=== PATIENT | female | born 1980 | race American Indian/Alaskan Native ===

== ENCOUNTER 2018-10-20 10:25 | Emergency (ER) | payer SELFPAY ==
[2018-10-20] MEDS ORDERED: PROVENTIL IH ONE (11:05)
[2018-10-20] MEDS ORDERED: DUONEB *Not for PRN Use IH ONE (13:13)
--- NOTE | 2018-10-20 14:06 | Emergency Department Report ---
ED General Adult HPI - General Chief complaint: Adult Asthma Stated complaint: ASTHMA ATTACK Time Seen by Provider: 10/20/18 13:01 Source: patient Mode of arrival: Ambulatory Limitations: No Limitations - History of Present Illness Initial comments: 7-year-old female who is 22 weeks states that she moved here from [place] and ran out of her asthma medications and she states that she just needs "another treatment" before she goes home. She states that the first treatment largely resolved her symptoms. She denied any leg pain or swelling. She denied any chest pain. He's had occasional cough but largely nonproductive. No fever or chills. The patient states that she had a prescription for her Dulera inhaler "transferred" from her doctor in [place]. She has a nebulizer machine at home but does not have any medication for it. -: Gradual, days(s) Associated Symptoms: denies other symptoms - Related Data Previous Rx's Medication Instructions Recorded Last Taken Type ALBUTEROL Inhaler(NF) [VENTOLIN 1 puff IH Q4HR #1 inha 10/20/18 Unknown Rx Inhaler(NF)] Albuterol Sulfate [Albuterol 0.63% 0.63 mg IH QID PRN #30 vial 10/20/18 Unknown Rx NEBS] Allergies Allergy/AdvReac Type Severity Reaction Status Date / Time acetaminophen [From Vicodin] Allergy Unknown Verified 10/20/18 10:27 hydrocodone [From Vicodin] Allergy Unknown Verified 10/20/18 10:27 ED Review of Systems ROS: Stated complaint: ASTHMA ATTACK Other details as noted in HPI Constitutional: denies: chills, fever Eyes: denies: eye pain, eye discharge, vision change ENT: denies: ear pain, throat pain Respiratory: cough (cough with rare white sputum), wheezing Cardiovascular: denies: chest pain, palpitations Endocrine: no symptoms reported Gastrointestinal: denies: abdominal pain, nausea, diarrhea Genitourinary: denies: urgency, dysuria, discharge Musculoskeletal: denies: back pain, joint swelling, arthralgia Skin: denies: rash, lesions Neurological: denies: headache, weakness, paresthesias Psychiatric: denies: anxiety, depression Hematological/Lymphatic: denies: easy bleeding, easy bruising ED Past Medical Hx - Past Medical History Previous Medical History?: Yes Hx Asthma: Yes - Surgical History Past Surgical History?: No - Social History Smoking Status: Never Smoker Substance Use Type: None - Medications Home Medications: Home Medications Medication Instructions Recorded Confirmed Last Taken Type ALBUTEROL Inhaler(NF) [VENTOLIN 1 puff IH Q4HR #1 inha 10/20/18 Unknown Rx Inhaler(NF)] Albuterol Sulfate [Albuterol 0.63% 0.63 mg IH QID PRN #30 vial 10/20/18 Unknown Rx NEBS] ED Physical Exam - General Limitations: No Limitations General appearance: alert, in no apparent distress - Head Head exam: Present: atraumatic, normocephalic - Eye Eye exam: Present: normal appearance. Absent: scleral icterus - ENT ENT exam: Present: mucous membranes moist - Neck Neck exam: Present: normal inspection. Absent: tenderness, meningismus - Respiratory Respiratory exam: Present: normal lung sounds bilaterally. Absent: respiratory distress - Cardiovascular Cardiovascular Exam: Present: regular rate, normal rhythm. Absent: systolic murmur, diastolic murmur, rubs, gallop - GI/Abdominal GI/Abdominal exam: Present: soft, normal bowel sounds. Absent: distended, tenderness, guarding, rebound, rigid - Extremities Exam Extremities exam: Present: normal inspection, full ROM, normal capillary refill. Absent: tenderness, pedal edema, joint swelling, calf tenderness - Back Exam Back exam: Present: normal inspection - Neurological Exam Neurological exam: Present: alert, oriented X3, CN II-XII intact. Absent: motor sensory deficit - Psychiatric Psychiatric exam: Present: normal affect, normal mood - Skin Skin exam: Present: warm, dry, intact, normal color. Absent: rash ED Course Vital Signs 10/20/18 10/20/18 10/20/18 10:54 12:01 12:19 Temperature 98.2 F Pulse Rate 108 H Pulse Rate [ 97 H 105 H Posterior Bilateral Throughout] Respiratory 22 Rate Respiratory 18 20 Rate [Posterior Bilateral Throughout] Blood Pressure 117/72 O2 Sat by Pulse 99 Oximetry 10/20/18 10/20/18 13:24 13:45 Temperature Pulse Rate Pulse Rate [ 105 H 107 H Posterior Bilateral Throughout] Respiratory Rate Respiratory 22 20 Rate [Posterior Bilateral Throughout] Blood Pressure O2 Sat by Pulse Oximetry - Reevaluation(s) Reevaluation #1: Patient given 1 additional DuoNeb. She is appropriate for outpatient managem ent. She states she feels movement. She's had no problem more affordable to her OB status. She will be discharged for follow-up. 10/20/18 14:05 Critical care attestation.: If time is entered above; I have spent that time in minutes in the direct care of this critically ill patient, excluding procedure time. ED Disposition Clinical Impression: with 22 completed weeks gestation Exacerbation of asthma Qualifiers: Asthma severity: mild Asthma persistence: intermittent Qualified Code(s): J45.21 - Mild intermittent asthma with (acute) exacerbation Disposition: TO HOME OR SELFCARE Is pt being admited?: No Does the pt Need Aspirin: No Condition: Stable Additional Instructions: Return as needed for any acute change or problem. If you do not have an OB doctor see referral for that and [facility] clinic. Prescriptions: Albuterol Sulfate [Albuterol 0.63% NEBS] 0.63 mg IH QID PRN #30 vial PRN Reason: Wheezing ALBUTEROL Inhaler(NF) [VENTOLIN Inhaler(NF)] 1 puff IH Q4HR #1 inha Referrals: ZOLTAN ALATORRENEW LAGUNA MD AGUS [Primary Care Provider] - 3-5 Days CARLY CHANDRA MD [Staff Physician] - 2-3 Days Time of Disposition: 14:06
[2018-10-20 15:15] VITALS: BP 110/61
== END 2018-10-20 15:17 | disposition home or self-care (01) ==
LOC: ED 10:25
DX: O99.512 Diseases of the respiratory system complicating pregnancy, second trimester (principal); J45.901 Unspecified asthma with (acute) exacerbation; Z3A.22 22 weeks gestation of pregnancy; Z88.5 Allergy status to narcotic agent
CPT/HCPCS: 94640